=== PATIENT | female | born 1970 | race Caucasian/White ===

== ENCOUNTER 2017-12-01 12:23 | Emergency (ER) ==
[2017-12-01] MEDS ORDERED: TENIVAC IM ONE (12:31)
[2017-12-01] MEDS ORDERED: ZOFRAN 4 MG/2 ML IM STA (12:31)
[2017-12-01 12:33] VITALS: BP 116/88; TEMP 99.6; BMI 25.8
[2017-12-01] MEDS ORDERED: LIDOCAINE HCL 1% SDV SUBCUT STA (12:51)
[2017-12-01] MEDS: MORPHINE 4 MG/ML SYRINGE IM STA ×2 (12:57→12:59)
--- NOTE | 2017-12-01 12:57 | DI ---
EXAM: Three views of the left hand HISTORY: Dog bite TECHNIQUE: AP lateral, oblique views of the left hand were obtained. FINDINGS: No acute fractures are seen. The soft tissues are normal. There are no erosions. No def inite radiopaque foreign bodies are seen. IMPRESSION: No acute fracture dislocation seen within the left hand.
[2017-12-01] MEDS ORDERED: AUGMENTIN 875-125 MG TAB PO STA (13:06)
--- NOTE | 2017-12-01 13:09 | ED.PDOC ---
General ED Provider: Dr. LIZZIE JOY-ER Chief Complaint: Bite Stated Complaint: a dog bit me Time Seen by Physician: 13:07 Mode of Arrival: Walk-In Information Source: Patient Exam Limitations: No limitations Nursing and Triage Documentation Reviewed and Agree: Yes Does patient meet sepsis criteria?: No System Inflammatory Response Syndrome: Not Applicable Sepsis Protocol: For patient's 13 years and over: Temp is 96.8 and below OR 101 and greater Pulse >90 BPM Resp >20/minute Acutely Altered Mental Status Are patient's symptoms suggestive of a new infection, such as: -Pneumonia -Skin, Soft Tissue -Endocarditis -UTI -Bone, Joint Infection -Implantable Device -Acute Abdominal Infection -Wound Infection -Meningitis -Blood Stream Catheter Infection -Unknown Skin Complaint Exam - Laceration/Abrasion/Hand Complaint/Exam Location of Injury: Left, Hand Mechanism of Injury: Laceration Onset/Duration: one hour Symptoms Are: Still present Initial Severity: Mild Current Severity: Mild Aggravating: Movement Alleviating: Compression Associated Signs and Symptoms: Denies: Fever, Chills, Erythema, Numbness, Tingling Differential Diagnoses: Laceration Review of Systems - Review Of Systems Constitutional: Reports: No symptoms Eyes: Reports: No symptoms Ears, Nose, Mouth, Throat: Reports: No symptoms Respiratory: Reports: No symptoms Cardiac: Reports: No symptoms GI: Reports: No symptoms : Reports: No symptoms Musculoskeletal: Reports: No symptoms Skin: Reports: Other Neurological: Reports: No symptoms Endocrine: Reports: No symptoms Hematologic/Lymphatic: Reports: No symptoms All Other Systems: Reviewed and Negative Past Medical History - Past Medical History Previously Healthy: Yes Endocrine: Reports: Unknown Cardiovascular: Reports: Unknown Respiratory: Reports: Unknown Hematological: Reports: Unknown Gastrointestinal: Reports: Unknown Genitourinary: Reports: Unknown Neuro/Psych: Reports: Unknown Musculoskeletal: Reports: Unknown Cancer: Reports: Unknown Last Menstrual Period: NA - Surgical History General Surgical History: Reports: Unknown - Family History Family History: Reports: Unknown - Social History Smoking Status: Never smoker Hx Substance Use: No Alcohol Screening: Occasionally - Immunizations Tetanus Shot up to Date: No Physical Exam - Physical Exam Appearance: Well-appearing, No pain distress, Well-nourished Eyes: KIKI ENT: Ears normal Neck: Supple Respiratory: Airway patent, Breath sounds clear, Breath sounds equal, Respirations nonlabored Cardiovascular: RRR GI/: Soft, Nontender, No masses, Bowel sounds normal, No Organomegaly Musculoskeletal: Normal strength, ROM intact, No edema, No calf tenderness Skin: Warm, Dry, Normal color Neurological: Sensation intact, Motor intact, Reflexes intact, Cranial nerves intact, Alert, Oriented Psychiatric: Affect appropriate, Mood appropriate Interpretation - Radiology Interpretation Radiology Interpretation By: Radiologist Radiology Results: Negative Procedures - Laceration/Wound Repair No standard instances Wound Description: Linear Wound Length (cm): 3.0cm left hand, 1cm 2nd mcp joint Wound Explored: Clean Wound Irrigated: Yes Wound Prep: Hibiclens Anesthesia: Lidocaine Wound Repaired With: Sutures Suture Size and Type: 4.0 prolene Number of Sutures: 0 Sterile Dressing Applied?: Yes Splint Applied?: No Sling Applied?: No Progress: the wound edges are loosely approximately approximated Critical Care Note - Critical Care Note Total Time (mins): 0 Course - Course Orders, Labs, Meds: Orders Category Date Time Status Amoxicillin/Potassium Clav [Augmentin 875-125 mg Tab] MEDS 12/01/17 13:06 Stat 1 tab PO ONCE STA Lidocaine HCl/Pf [Lidocaine HCl 1% Sdv] MEDS 12/01/17 12:51 Discontinued 5 ml SUBCUT ONCE STA Morphine Sulfate [Morphine 4 mg/ml Syringe] MEDS 12/01/17 12:31 Discontinued 4 mg IM ONCE STA Ondansetron HCl/Pf [Zofran 4 mg/2 ml] MEDS 12/01/17 12:31 Discontinued 4 mg IM ONCE STA Tetanus and Diphtheria Tox/Pf [Tenivac] MEDS 12/01/17 12:31 Discontinued 0.5 ml IM .ONCE ONE HAND, LEFT 3 VIEWS Stat RADS 12/01/17 12:36 Completed Medications Discontinued Medications Generic Name Dose Route Start Last Admin Trade Name Freq PRN Reason Stop Dose Admin Amoxicillin/Clavulanate Potassium 1 tab 12/01/17 13:06 Augmentin 875-125 Mg Tab PO 12/01/17 13:07 ONCE STA Lidocaine HCl 5 ml 12/01/17 12:51 12/01/17 13:03 Lidocaine Hcl 1% Sdv SUBCUT 12/01/17 12:52 5 ml ONCE STA Administration Morphine Sulfate 4 mg 12/01/17 12:31 12/01/17 12:59 Morphine 4 Mg/Ml Syringe IM 12/01/17 12:32 4 mg ONCE STA Administration Ondansetron HCl 4 mg 12/01/17 12:31 12/01/17 12:58 Zofran 4 Mg/2 Ml IM 12/01/17 12:32 4 mg ONCE STA Administration Tetanus/Diphtheria Toxoids Adsorbed 0.5 ml 12/01/17 12:31 12/01/17 12:59 Tenivac IM 12/01/17 12:32 0.5 ml .ONCE ONE Administration Vital Signs: Temp Pulse Resp BP Pulse Ox 12/01/17 12:25 99.6 F 103 H 16 116/88 97 Departure - Departure Time of Disposition: 13:10 Disposition: HOME SELF-CARE Discharge Problem: Laceration Dog bite Qualifiers: Encounter type: initial encounter Qualified Code(s): W54.0XXA - Bitten by dog, initial encounter Instructions: Animal Bite (ED) Condition: Good Pt referred to PMD for follow-up: Yes IPMP verified?: No Additional Instructions: augmentin 875mg bid x 7 days----norco 7.5mg q 4hrs prn #10---f/u with your pcp in 2 days for wound recheck Allergies/Adverse Reactions: Allergies No Known Allergies Allergy (Unverified 12/01/17 13:08) Disposition Discussed With: Patient
== END 2017-12-01 13:49 | disposition home or self-care (01) ==
LOC: ED 12:23
DX: S61.452A Open bite of left hand, initial encounter (principal); W54.0XXA Bitten by dog, initial encounter
CPT/HCPCS: 90471; 90714; 96372; 99283